=== PATIENT | male | born 1955 | race Asian ===

== ENCOUNTER 2021-06-17 20:02 | Inpatient (IN) | payer MEDICARE ==
[~2021-06-17] VITALS: Ht 177.8 cm; Wt 90.3 kg
--- NOTE | 2021-06-17 20:15 | NUR ---
RN ADMITTING NOTE PATIENT ADMITTED FROM [facility], PATIENT ABLE TO MAKE NEEDS KNOWN. DIRECT QUESTIONS NEED TO BE ASKED PATIENT'S ANSWERS CAN BE LIMITED TO YES/NO. A/O X 3, WITH PERIODS OF CONFUSION. PATIENT STATES THAT HE HAD A FALL INCIDENT 06/15. PATIENT STABLE ON RA, NO RESPIRATORY DISTRESS. PATIENT HAS GENERALIZED WEAKNESS, BUT LEFT SIDE SEVERE WEAKNESS. NO REPORTS OF PAIN AT THIS TIME. PATIENT'S VITAL SIGNS STABLE UPON ARRIVAL. BELONGINGS INVENTORIED, ORIENTED PATIENT TO ROOM, RN, AND BULK FILLER. SKIN ASSESSMENT COMPLETED. SAFETY MEASURES IN PLACE: BED LOCKED AND IN LOWEST POSITION, BED ALARM ON, CALL LIGHT WITHIN REACH, SIDE RAILS UP. WILL MONITOR PATIENT CLOSELY.
--- NOTE | 2021-06-17 21:30 | NUR ---
[facility] ORDERLY AT BEDSIDE SPEAKING WITH PATIENT
[2021-06-17] MEDS ORDERED: HYDR25TA4 PO (21:40)
[2021-06-17] MEDS ORDERED: MELA5TAB PO (21:40)
[2021-06-17] MEDS ORDERED: ASPI-1169 PO (21:40)
[2021-06-17] MEDS ORDERED: SIMV-49 PO (21:40)
[2021-06-17] MEDS ORDERED: Z GUARD REMEDY 2 OZ OINT TP PRN (22:00)
[2021-06-17] MEDS ORDERED: ACETAMINOPHEN 325 MG TABLET PO PRN (22:00)
[2021-06-17] MEDS ORDERED: ONDANSETRON HCL/PF 4 MG/2 ML VIAL IVP PRN (22:00)
[2021-06-17] MEDS ORDERED: MAG HYDROX/AL HYDROX/SIMETH 30 ML UDC PO PRN (22:00)
[2021-06-17] MEDS ORDERED: MAGNESIUM HYDROXIDE 30 ML UDC PO PRN (22:00)
[2021-06-17] MEDS ORDERED: SIMVASTATIN 40 MG TABLET PO SCH (22:00)
[2021-06-17] MEDS ORDERED: MELATONIN 3 MG TABLET PO PRN (22:00)
--- NOTE | 2021-06-17 22:30 | NUR ---
RN NOTE DR. HUMBERTO TAMAYO ORDERED MRI BRAIN WITH AND WITHOUT CONTRAST FOR TOMORROW. CONSENTS SIGNED. WILL GIVE AMBIEN TO PATIENT TO HELP HIM SLEEP.
[2021-06-17] MEDS ORDERED: LEVETIRACETAM (500MG) 500 MG/5 ML VIAL IV ONE (22:33)
[2021-06-17] MEDS ORDERED: SIMVASTATIN 20 MG TABLET ONE (22:43)
[2021-06-17] MEDS: IV NS 0.9% 1,000 ML IV PRN (22:49)
[2021-06-17] MEDS: LEVETIRACETAM (500MG) 500 MG in IV NS 0.9% 100 ML IV SCH (22:57)
[2021-06-17 23:00] VITALS: BP 130/84
[2021-06-17] MEDS: ZOLPIDEM TARTRATE 5 MG TABLET PO PRN (23:13)
--- NOTE | 2021-06-18 06:05 | NUR ---
RN NOTE CALLED X RAY TO CONFIRM WHAT TIME MRI WILL BE DONE. CHUY BUSH STATES THAT INTERNAL CONTROL CONSULTANT WILL CALL FOR WHEN THEY WEILL TAKE PATIENT BUT MRI WILL BE DONE TODAY. WE DON'T KNOW TIME YET BECAUSE THEY DON'T KNOW WHEN THE RADIOLOGIST WILL COME TODAY. PATIENT PUT NPO FOR NOW D/T USE OF CONTRAST.
--- NOTE | 2021-06-18 06:38 | NUR ---
RN CLOSING NOTE PATIENT IN BED, EYES CLOSED. EASILY AWAKENED. PATIENT IS ABLE TO MAKE NEEDS KNOWN. A/O X 3. PATIENT TOLERATING ROOM AIR, NO SOB OR RESPIRATORY DISTRESS. NO COMPLAINS OF PAIN. MRSA SWAB DONE. NPO STATUS MAINTAINED SINCE MIDNIGHT. PATIENT TO HAVE MRI OF BRAIN WITH AND WITHOUT CONTRAST TODAY. LAC 20 G PATENT AND INTACT, NS @ 75 ML/HR INFUSING WELL. SAFETY MEASURES IMPLEMENTED. SEIZURE PRECAUTIONS IN PLACE.ALL NEEDS MET AND ATTENDED, ALL ORDERS CARRIED OUT. WILL ENDORSE TO DAY SHIFT NURSE FOR CHUCKIE.
--- NOTE | 2021-06-18 07:33 | NUR ---
RN OPENING NOTES Patient seen comfortably lying in bed, no apparent distress noted, respirations even and unlabored, no SOB, denies any pain or discomfort at this time, no grimacing. Call light left within reach, safety precautions in place, brakes locked, side rails up X 2, will monitor closely for any changes.
[2021-06-18 07:38] LABS: BASOPHILS % (AUTO) 0.2 % (0.0-2.0); HEMATOCRIT 43 % (39-51); HEMOGLOBIN 15.1 g/dL (13.5-17.5); LYMPHOCYTES # (AUTO) 1.1 K/uL (0.8-4.8); LYMPHOCYTES % (AUTO) 9.5 % (20.0-44.0); MEAN CORPUSCULAR HGB CONC 35 g/dl (31.0-36.0); MEAN CORPUSCULAR VOLUME 95 fL (80-96); MONOCYTES # (AUTO) 0.4 K/uL (0.1-1.30); MONOCYTES % (AUTO) 3.8 % (2.0-12.0); NEUTROPHILS # (AUTO) 9.9 K/uL (1.8-8.9); NEUTROPHILS % (AUTO) 86.5 % (43.0-81.0); PLATELET COUNT (AUTO) 248 K/uL (150-450); RED BLOOD CELL COUNT(AUTO) 4.55 MIL/uL (4.5-6.0); WHITE BLOOD COUNT (AUTO) 11.5 K/uL (4.3-11.0)
[2021-06-18 07:47] LABS: CALCIUM, SERUM 9.3 mg/dL (8.5-10.1); PHOSPHORUS 3.2 mg/dL (2.5-4.9); POTASSIUM 4.3 mmol/L (3.5-5.1)
[2021-06-18 08:00] VITALS: BP 131/85
[2021-06-18] MEDS ORDERED: DEXAMETHASONE SOD PHOSPHATE 4 MG/ML VIAL IV SCH (09:00)
[2021-06-18] MEDS: LEVETIRACETAM (500MG) 500 MG in IV NS 0.9% 100 ML IV SCH ×2 (09:18→21:04)
[2021-06-18] MEDS: ASPIRIN 81 MG TAB.CHEW PO SCH (12:04)
[2021-06-18] MEDS: HYDROCHLOROTHIAZIDE 25 MG TABLET PO SCH (12:05)
[2021-06-18] MEDS: DEXAMETHASONE SOD PHOSPHATE 4 MG/ML VIAL IV SCH ×3 (12:05→23:56)
[2021-06-18] MEDS: IV NS 0.9% 1,000 ML IV PRN (13:28)
[2021-06-18] MEDS ORDERED: GADOTERATE MEGLUMINE 10 MMOL/20 ML VIAL IV ONE (15:43)
[2021-06-18 16:00] VITALS: BP 111/71
--- NOTE | 2021-06-18 18:38 | NUR ---
RN CLOSING NOTES Patient lying in bed, respirations even and unlabored, no SOB, no dizziness, no palpitations, no apparent distress noted, denies any pain or discomfort, no grimacing. All medications given per MD order, tolerating well. All needs anticipated, seizure precautions in place, kept clean and dry, call light left within reach, safety precautions in place, brakes locked, side rails up X 2, will endorse to next shift for continuity of care.
--- NOTE | 2021-06-18 19:40 | NUR ---
MS RN OPENING NOTES RECEIVED PT IN BED, AWAKE, FAMILY AT BEDSIDE. AOx3-4, ABLE TO MAKE NEEDS KNOWN. ON RA AND TOLERATING WELL. NO SOB NOTED. NO S/SX OF RESPIRATORY DISTRESS NOTED. IV ACCESS IN LAC#20 RUNNING NS @ 75 ML/HR. SAFETY PRECAUTIONS IN PLACE: BED IN LOWEST, LOCKED POSITION, SIDERAILS UPx2, AND BRAKES ON. TABLE AND CALL LIGHT WITHIN REACH. WILL CONTINUE TO MONITOR.
[2021-06-18 20:00] VITALS: BP 105/67
[2021-06-18] MEDS: SIMVASTATIN 20 MG TABLET PO SCH (21:06)
[2021-06-18] MEDS: ZOLPIDEM TARTRATE 5 MG TABLET PO PRN (21:07)
[2021-06-19] MEDS: IV NS 0.9% 1,000 ML IV PRN (03:45)
[2021-06-19] MEDS: DEXAMETHASONE SOD PHOSPHATE 4 MG/ML VIAL IV SCH ×4 (05:13→23:36)
[2021-06-19 06:47] LABS: HEMATOCRIT 41 % (39-51); HEMOGLOBIN 14.1 g/dL (13.5-17.5); LYMPHOCYTES % (AUTO) 6.1 % (20.0-44.0); MEAN CORPUSCULAR HGB CONC 35 g/dl (31.0-36.0); MEAN CORPUSCULAR VOLUME 96 fL (80-96); MONOCYTES # (AUTO) 0.3 K/uL (0.1-1.30); NEUTROPHILS # (AUTO) 14.8 K/uL (1.8-8.9); NEUTROPHILS % (AUTO) 91.9 % (43.0-81.0); PLATELET COUNT (AUTO) 238 K/uL (150-450); RED BLOOD CELL COUNT(AUTO) 4.25 MIL/uL (4.5-6.0); WHITE BLOOD COUNT (AUTO) 16.1 K/uL (4.3-11.0)
--- NOTE | 2021-06-19 06:54 | NUR ---
MS RN CLOSING NOTES PT IN BED, ASLEEP, AWAKENS TO VERBAL STIMULI. AOx3-4, ABLE TO MAKE NEEDS KNOWN. ON RA AND TOLERATING WELL. NO SOB NOTED. NO S/SX OF RESPIRATORY DISTRESS NOTED. IV ACCESS IN LAC#20 RUNNING NS @ 75 ML/HR. ALL NEEDS MET. PT KEPT CLEAN AND DRY. SAFETY PRECAUTIONS IN PLACE: BED IN LOWEST, LOCKED POSITION, SIDERAILS UPx2, AND BRAKES ON. TABLE AND CALL LIGHT WITHIN REACH. WILL ENDORSE TO ONCOMING SHIFT FOR CHUCKIE.
[2021-06-19 07:02] LABS: ALANINE AMINOTRANSFERASE 26 U/L (12-78); ALBUMIN 3.1 g/dL (3.4-5.0); ALKALINE PHOSPHATASE 64 U/L (46-116); ASPARTATE AMINOTRANSFERASE 10 U/L (15-37); BILIRUBIN,DIRECT 0.1 mg/dL (0.0-0.2); BILIRUBIN,TOTAL 0.4 mg/dL (0.2-1.0); CALCIUM, SERUM 8.4 mg/dL (8.5-10.1); CARBON DIOXIDE 32 mmol/L (21-32); CHLORIDE 105 mmol/L (98-107); GLUCOSE 145 mg/dL (74-106); POTASSIUM 3.7 mmol/L (3.5-5.1); SODIUM SERUM 143 mmol/L (136-145); TOTAL PROTEIN, SERUM 6.8 g/dL (6.4-8.2); UREA NITROGEN, BLOOD 19 mg/dL (7-18)
--- NOTE | 2021-06-19 07:33 | NUR ---
RN OPENING NOTE- PT ASLEEP IN BED, EASILY AWAKENED. ORIENTED TO PERSON PLACE, ON RA AND TOLERATING WELL. NO SOB NOTED. NO S/SX OF RESPIRATORY DISTRESS NOTED. IV ACCESS IN LAC#20 RUNNING NS @ 75 ML/HR. SAFETY PRECAUTIONS IN PLACE: BED IN LOWEST, LOCKED POSITION, SIDERAILS UPx2, AND BRAKES ON. TABLE AND CALL LIGHT WITHIN REACH. WILL CONTINUE TO MONITOR.
[2021-06-19 08:00] VITALS: BP 105/65
[2021-06-19 08:11] LABS: PROSTATE SPECIFIC ANTIGEN SCR 0.17 ng/mL (0.00-4.00)
[2021-06-19] MEDS: HYDROCHLOROTHIAZIDE 25 MG TABLET PO SCH (08:41)
[2021-06-19] MEDS: ASPIRIN 81 MG TAB.CHEW PO SCH (08:41)
[2021-06-19] MEDS ORDERED: IOHEXOL-300 100 ML VIAL IV ONE (09:31)
--- NOTE | 2021-06-19 09:41 | NUR ---
RN NOTE- DR PABLO SAW PT. I REQUESTED HE BE TAKEN OFF NPO . DR BRAMBILA NOTIFIED SHE MADE ORIGINAL ORDER. DR BRAMBILA SAID REG DIET NOW. COMPLIED
[2021-06-19] MEDS: LEVETIRACETAM (500MG) 500 MG in IV NS 0.9% 100 ML IV SCH ×2 (11:02→21:14)
--- NOTE | 2021-06-19 18:40 | NUR ---
RN CLOSING NOTE- PT RECEIVING MEDS AND IVF THROUGH LAC 20G, ON ROOM AIR, COMFORTABLE. DR BRAMBILA TO SEE PT TOMORROW. FAMILY AT BEDSIDE IN NO DISTRESS. NEEDS MET, SIDE RAILS UP, BED LOCKED. MONITOR/ASSIST
[2021-06-19 20:00] VITALS: BP 115/73
[2021-06-19] MEDS: SIMVASTATIN 20 MG TABLET PO SCH (21:14)
[2021-06-19] MEDS: ZOLPIDEM TARTRATE 5 MG TABLET PO PRN (21:14)
[2021-06-20] MEDS: IV NS 0.9% 1,000 ML IV PRN (00:17)
[2021-06-20] MEDS: DEXAMETHASONE SOD PHOSPHATE 4 MG/ML VIAL IV SCH ×3 (05:09→17:18)
[2021-06-20 06:48] LABS: CALCIUM, SERUM 8.4 mg/dL (8.5-10.1)
[2021-06-20 06:57] LABS: HEMATOCRIT 40 % (39-51); HEMOGLOBIN 13.8 g/dL (13.5-17.5); LYMPHOCYTES # (AUTO) 0.8 K/uL (0.8-4.8); LYMPHOCYTES % (AUTO) 5.4 % (20.0-44.0); MEAN CORPUSCULAR HGB CONC 34 g/dl (31.0-36.0); MEAN CORPUSCULAR VOLUME 96 fL (80-96); MONOCYTES # (AUTO) 0.4 K/uL (0.1-1.30); MONOCYTES % (AUTO) 2.7 % (2.0-12.0); NEUTROPHILS # (AUTO) 13.9 K/uL (1.8-8.9); NEUTROPHILS % (AUTO) 91.9 % (43.0-81.0); PLATELET COUNT (AUTO) 231 K/uL (150-450); RED BLOOD CELL COUNT(AUTO) 4.21 MIL/uL (4.5-6.0); WHITE BLOOD COUNT (AUTO) 15.2 K/uL (4.3-11.0)
--- NOTE | 2021-06-20 07:15 | NUR ---
MS RN NOTE PATIENT WAS RECEIVED AWAKE IN BED. FAMILY PRESENT IN ROOM FOR SUPPORT. PATIENT IS TO BE D/C'd A/OX3. LAC #20G. PATIENT SHOWS NO S/S OF DISTRESS, BREATHING IS SYMMETRICAL. SAFETY MEASURES IN PLACE. BED AT LOWEST POSITION, RAILS UPX2, CALL HERNANDEZ WITHIN REACH. WILL CONTINUE TO MONITOR PATIENT THROUGHOUT SHIFT. Addendum: 06/20/21 at 2055 by JESSEE DONALDSON RN RN OPENING NOTE
[2021-06-20 08:00] VITALS: BP 126/79
--- NOTE | 2021-06-20 08:12 | NUR ---
RN OPENING NOTES PATIENT IS IN BED RESTING, SLEEPING. A/O X3. NO S/S OF PAIN NOTES AT THIS TIME. ON ROOM AIR, NO DISTRESS OR SHORTNESS OF BREATH NOTED. IV LAC #20G INTACT AND PATENT. FALL AND SAFETY MEASURES IN PLACE, BED ALARM ON, BED IN LOW AND LOCK POSITION, CALL LIGHT AND TABLE WITHIN EASY REACH, SIDE RAILS UP X2. WILL CONTINUE TO MONITOR.
[2021-06-20] MEDS ORDERED: LEVETIRACETAM (250 MG) 250 MG TABLET PO SCH (09:00)
[2021-06-20] MEDS: ASPIRIN 81 MG TAB.CHEW PO SCH (09:37)
[2021-06-20] MEDS: HYDROCHLOROTHIAZIDE 25 MG TABLET PO SCH (09:37)
[2021-06-20 16:00] VITALS: BP 129/79
--- NOTE | 2021-06-20 19:53 | NUR ---
RN CLOSING NOTES PATIENT IS IN BED RESTING, AWAKE, FAMILY IN ROOM. A/O X4. NO S/S OF PAIN NOTES AT THIS TIME. ON ROOM AIR, NO DISTRESS OR SHORTNESS OF BREATH NOTED. IV VICENTA PIC LINE MIDLINE, INTACT AND PATENT. FALL AND SAFETY MEASURES IN PLACE, BED ALARM ON, BED IN LOW AND LOCK POSITION, CALL LIGHT AND TABLE WITHIN EASY REACH, SIDE RAILS UP X2. WILL ENDORSE TO BEHAVIORAL HEALTH ASSISTANT..
--- NOTE | 2021-06-20 20:45 | NUR ---
MS [place] D/C NOTE PATIENT WAS AWAKE IN BED FOR PREPARATION FOR D/C. FAMILY WAS PRESENT FOR SUPPORT. PATIENT WAS D/C'd TO [facility] IN STABLE CONDITION. A/OX3. LAC #20G WAS DISCONNECTED, BUT LINE LEFT IN - PATENT, CLEAN, INTACT, AND WITH PATIENT STATING NO PAIN PRESENT. PATIENT SHOWS NO S/S OF DISTRESS, BREATHING IS SYMMETRICAL. PATIENT D/C INSTRUCTIONS GIVEN TO PATIENT. PATIENT STATED HE UNDERSTOOD AND SIGNED ALL FORMS. PATIENT BELONGINGS ACCOUNTED FOR PHYSICALLY AND PER FORM - ALL FORMS IN CHART. BEDSIDE REPORT WAS GIVEN TO [facility]. PATIENT WAS TRANSPORTED BY GURNEY TO AMBULANCE. [facility] REPORT GIVEN TO BK IN PATIENT'S ROOM THERE, [id number]. Addendum: 06/20/21 at 2057 by JESSEE DONALDSON RN PATIENT VS STABLE: T 97.9, 138/89, HR 87, R 18, RM AIR 95%, NO PAIN REPORTED WHEN ASKED.
== END 2021-06-20 20:55 | disposition short-term general hospital (02) | DRG 54 ==
LOC: MED 20:02
PROVIDERS: ADMIT Nurse Practitioner Acute Care; ATTEND Internal Medicine
DX: C71.9 Malignant neoplasm of brain, unspecified (principal); G93.41 Metabolic encephalopathy; G93.6 Cerebral edema; E78.5 Hyperlipidemia, unspecified; I10 Essential (primary) hypertension; D72.829 Elevated white blood cell count, unspecified; Z85.46 Personal history of malignant neoplasm of prostate; Z92.3 Personal history of irradiation; Z91.81 History of falling; Z20.822 Contact with and (suspected) exposure to COVID-19; R53.1 Weakness
CPT/HCPCS: 36415; 70553-TC; 71260-TC; 80048-TC; 80076-TC; 82378; 83615-TC; 83735-TC; 84100-TC; 84153-TC; 84154-TC; 84403; 85025-TC; 87081-TC; 92526; 92611-TC; 97116-TC; 97530-TC; A9575; G0378; J1100; J1953; J7030; Q9967